=== PATIENT | male | born 1985 | race Caucasian/White ===

== ENCOUNTER → 2016-12-11 | Outpatient (CLI) | payer OTHER | END | disposition home or self-care (01) | LOC: RAD.S 15:54 | DX: M79.642 Pain in left hand (principal); M79.641 Pain in right hand; M25.512 Pain in left shoulder ==

== ENCOUNTER → 2016-12-12 | Outpatient (CLI) | payer OTHER | END | disposition home or self-care (01) | LOC: RESC 12-06 09:00 | DX: J45.909 Unspecified asthma, uncomplicated (principal) ==